=== PATIENT | male | born 1930 | race Caucasian/White ===

== ENCOUNTER 2016-10-05 09:35 | Observation (INO) | payer MEDICARE, MEDICAID ==
[2016-10-05] MEDS ORDERED: ENALAPRILAT DIHYDRATE 1.25 MG/ML 1ML VIAL IV ONE (10:11)
[2016-10-05] MEDS ORDERED: FUROSEMIDE 40 MG/4 ML VIAL ONE (10:11)
[2016-10-05 10:24] LABS: ABSOLUTE NEUTROPHIL COUNT 5.4 K/mm3 (1.8-7.7); BASO # 0.1 K/mm3 (0.0-0.2); BASO % 0.6 % (0.2-1.0); EOS # 0.1 (0.0-0.5); EOS % 1.7 % (0.9-2.9); HEMATOCRIT 38.2 % (32.0-52.0); HEMOGLOBIN 11.8 gm/l (14.0-18.0); IMM NEUT # 0.1 K/mm3 (0-0.2); IMM NEUT% 0.6 % (0-1); LYMPH # 1.9 (1.0-4.8); MEAN CELL VOLUME 96.2 fl (80.0-94.0); MEAN CORPUSCULAR HEMOGLOBIN 29.7 pg (27.0-31.0); MEAN CORPUSCULAR HGB CONC 30.9 g/dl (33.0-37.0); MEAN PLATELET VOLUME 10.6 fl (7.4-10.4); MONO # 0.8 (0.0-0.8); MONO % 9.1 % (4-12); PLATELET COUNT 206 K/mm3 (130-400); RED CELL DISTRIBUTION WIDTH 14.4 % (11.5-14.5)
[2016-10-05 10:29] LABS: INR 2.3; PROTHROMBIN TIME 25.2 SECONDS (9.3-11.4)
[2016-10-05 10:40] LABS: ALB/GLOB RATIO 1.2 (>1.0); ALBUMIN 3.9 gm/dL (3.5-5.7); CALCIUM 9.4 mg/dL (8.6-10.3); MAGNESIUM 2.2 mg/dL (1.9-2.7)
--- NOTE | 2016-10-05 10:59 | RAD ---
Exam: Portable chest COMPARISON: 06/23/2016 and 01/26/2012 INDICATION: Dyspnea. FINDINGS: A semierect AP portable view of the chest again demonstrates postsurgical changes of median sternotomy and valve replacement. Dual-lead pacer/AICD is unchanged in position. Cardiomegaly is similar, as is the borderline prominent central pulmonary vasculature. There is no lavinia pulmonary edema, focal airspace disease or pleural effusion. IMPRESSION: No acute pulmonary process.
[2016-10-05 13:33] VITALS: BMI 39.0
[2016-10-05] MEDS ORDERED: BISACODYL 10 MG SUP PR PRN (15:39)
[2016-10-05] MEDS ORDERED: ACETAMINOPHEN 325 MG TABLET PO PRN (15:39)
[2016-10-05] MEDS ORDERED: MAGNESIUM HYDROXIDE 30 ML UDCUP PO PRN (15:39)
[2016-10-05] MEDS ORDERED: SODIUM CHLORIDE 0.9% 100 ML IV PRN (15:39)
[2016-10-05] MEDS ORDERED: BLISTEX LIPSTICK 1 EACH TP PRN (15:39)
[2016-10-05] MEDS ORDERED: MENTHOL/CETYLPYRD 1 EACH LOZENGE PO PRN (15:39)
[2016-10-05] MEDS ORDERED: BISACODYL 5 MG TABLET.EC PO PRN (15:39)
[2016-10-05] MEDS ORDERED: TRAZODONE HCL 50 MG TABLET PO PRN (15:48)
[2016-10-05] MEDS ORDERED: ALPRAZOLAM 0.5 MG TABLET PO PRN (15:48)
[2016-10-05] MEDS ORDERED: ALBUTEROL SULFATE MDI 60 PUFFS/INHALER IH PRN (15:48)
[2016-10-05] MEDS ORDERED: WARFARIN PER PHARMACY 1 EACH DOSE PO SCH (16:00)
[2016-10-05] MEDS ORDERED: ALPRAZOLAM 1 MG TABLET PO PRN (16:04)
[2016-10-05] MEDS ORDERED: WARFARIN SODIUM 2.5 MG TABLET PO ONE ×2 (16:33→21:00)
[2016-10-05] MEDS ORDERED: FUROSEMIDE 40 MG TABLET PO ONE (17:35)
[2016-10-05] MEDS: NYSTATIN TP SCH ×2 (17:43→20:42)
[2016-10-05] MEDS: TRIAMCIN TP SCH ×2 (17:43→20:42)
[2016-10-05] MEDS: FLUTICASONE/SALMETEROL 250/50 14 PUFFS/DISK IH SCH (20:40)
[2016-10-05] MEDS: FLUTICASONE PROPIONATE 50 MCG/SPRAY 120 SPRAYS/16 G INH NS SCH (20:40)
[2016-10-05] MEDS: DOCUSATE SODIUM 100 MG CAPSULE PO SCH (20:41)
[2016-10-05] MEDS: ROPINIROLE 1 MG TABLET PO SCH (20:41)
[2016-10-05] MEDS ORDERED: WARFARIN SODIUM 2.5 MG TABLET PO SCH (21:00)
--- NOTE | 2016-10-06 00:02 | HP ---
BECKYEVAN [id number] DATE OF : 1930 CHIEF COMPLAINT: Shortness of breath. HISTORY OF PRESENT ILLNESS: The patient has a history of COPD with home oxygen dependence, along with atrial fibrillation, CHF and coronary artery disease, who has developed worsening shortness of breath over the past three to four days. He says he is taking his medications as usual. He is not using any increased salt. He has not developed any cold or flu symptoms. With his increased shortness of breath he has also had some increase in his rate of breathing. He denies any fevers, chest pain or cough. REVIEW OF SYSTEMS: General - no fevers or chills. ENT - no congestion or throat pain. Cardiovascular - no chest pain or pressure. He may have had a pound or two of weight gain, but denies any increase in edema. Respiratory - shortness of breath. No coughing. Increased respiratory rate. Abdomen - no abdominal pain, nausea, vomiting or diarrhea. - no difficulties with urination. Musculoskeletal - no muscle aches or pain. Neurologic - no lightheadedness, dizziness, numbness or tingling. Skin -psoriasis, multiple erythematous plaques bilateral extremities in the flexures. PAST MEDICAL HISTORY: Includes: 1. Coronary artery disease. 2. Mitral regurgitation. 3. Pulmonary hypertension. 4. Paroxysmal atrial fibrillation. 5. Sleep apnea. 6. Restless legs. 7. Depression. 8. He has COPD and he is on two liters of home O2 use. 9. Morbidly obese. 10. Hyperlipidemia. 11. Mitral valve disease. 12. Left bundle branch block. 13. Dilated ischemic cardiomyopathy. 14. Type-2 diabetes. 15. Hypertension. 16. Osteoarthritis. PAST SURGICAL HISTORY: Includes: 1. Cataracts. 2. Cholecystectomy. 3. Knee surgery. 4. Penile implant. 5. Mitral valve replacement. 6. Pacemaker. 7. He has had cardiac catheterizations and atrial fibrillation ablation in the past. ALLERGIES: Include: 1. Lisinopril. 2. Morphine. 3. Tetanus. MEDICATIONS: 1. Warfarin. 2. Trazodone. 3. Fluticasone nasal spray. 4. Atorvastatin. 5. Amlodipine. 6. Xanax. 7. Albuterol. 8. Carvedilol. 9. Aspirin. 10. Fluoxetine. 11. Furosemide. 12. Advair. 13. Glimepride. 14. Niacin. 15. Nasonex. 16. Mag-Oxide. 17. Fish oil. 18. Nystatin. 19. Triamcinolone cream. 20. Requip. 21. Spironolactone. FAMILY HISTORY: Mother had a heart attack and sudden . SOCIAL HISTORY: He used to smoke, but he quit over 25 years ago. He is retired. He has had asbestos exposure. 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 He is and they have several children. PHYSICAL EXAMINATION: VITAL SIGNS: Temperature 98.8. Heart rate of 52. Blood pressure 102/62. Saturating 93% on room air. He does have two liters nasal cannula for his home oxygen use. GENERAL: He is alert and oriented, in no acute distress. He is cooperative and comfortable. HEENT: Normocephalic, atraumatic. No tenderness to palpation. His mucous membranes are moist. Pupils are equal, round and reactive. His extraocular muscles are intact. There is no scleral icterus or conjunctival injection. GENERAL: He is morbidly obese. CARDIOVASCULAR: Positive S1, S2. It is regular. Palpable pulses bilaterally radially. RESPIRATORY: Decreased in the bases. Otherwise clear to auscultation. No rhonchi, wheezing or crackles. ABDOMEN: Soft and nontender. No distention. No rebound and no guarding. MUSCULOSKELETAL: He is moving extremities without difficulty. NEUROLOGIC: He is alert and oriented. SKIN: He has psoriatic plaques bilateral knees and scattered erythematous plaques on other extremities. LABORATORY STUDIES: Sodium 136, potassium 4.0, chloride 100, carbon dioxide 30, BUN of 15, creatinine 1.0, glucose 119, calcium 9.4, magnesium 2.2 and alkaline phosphatase 143. Troponin 0.03. BNP of 99. White blood count 8.2, hemoglobin of 11.8, hematocrit of 38.2 and platelet count of 206. PT of 25.2. INR is 2.3, with a VBG lactate of 1.6. Influenza A was negative. IMAGIN. A chest x-ray with no acute cardiopulmonary process. 2. In the emergency department the emergency physician performed a bedside ultrasound, and he did see some fluid overload in the costophrenic angles, not seen on chest x-ray however. An EKG was obtained, and it showed a paced rate of 77 beats per minute, with a QRS duration of 217 milliseconds and a QTC of 536 milliseconds. ASSESSMENT/PLAN: This is an 85-year-old female with shortness of breath, history of COPD, ischemic cardiomyopathy and coronary artery disease status post stentings and AICD placement who was provided with IV Lasix and enalapril in the emergency department, with improvements of his symptoms as he started to diurese. The patient is being admitted to the hospital overnight for observation and ongoing care. 1. Acute CHF, with improvement with diuresis. Will continue diuresis and monitor. He is on his home O2 use. 2. Dilated ischemic cardiomyopathy, contributing to fluid overload. Will continue home medications and monitor. 3. COPD. The patient is at his baseline oxygen requirement. Will continue his inhaler treatment and monitor. 4. Depression. Continue his home medications. 5. Diabetes Type-2. Will monitor his diet and continue his home medications. 6. Hypertension, stable. 7. Morbidly obese, contributing to complicating medical care and his functional reserve for tolerating fluid overload or decrease in oxygen. 8. Restless legs. Continue his home medications. 9. The patient is a DNR at this time. cc: Dr. Petrona Boston
[2016-10-06] MEDS ORDERED: NITROGLYCERIN 0.4 MG/TAB.SUBL BOT SL PRN (01:06)
[2016-10-06 06:51] LABS: ABSOLUTE NEUTROPHIL COUNT 5.2 K/mm3 (1.8-7.7); BASO % 0.4 % (0.2-1.0); EOS # 0.1 (0.0-0.5); EOS % 1.4 % (0.9-2.9); HEMATOCRIT 36.1 % (32.0-52.0); HEMOGLOBIN 11.2 gm/l (14.0-18.0); IMM NEUT% 0.4 % (0-1); LYMPH # 1.6 (1.0-4.8); LYMPH % 20.4 % (15-45); MEAN CELL VOLUME 94.8 fl (80.0-94.0); MEAN CORPUSCULAR HEMOGLOBIN 29.4 pg (27.0-31.0); MEAN PLATELET VOLUME 10.6 fl (7.4-10.4); MONO # 0.7 (0.0-0.8); MONO % 8.7 % (4-12); NEUT % 68.7 % (43-75); PLATELET COUNT 215 K/mm3 (130-400); RED CELL DISTRIBUTION WIDTH 14.6 % (11.5-14.5)
[2016-10-06 07:05] LABS: INR 2.02; PROTHROMBIN TIME 22.1 SECONDS (9.3-11.4)
[2016-10-06 07:13] LABS: CALCIUM 9.3 mg/dL (8.6-10.3)
[2016-10-06] MEDS: TRIAMCIN TP SCH (08:34)
[2016-10-06] MEDS: NYSTATIN TP SCH (08:34)
[2016-10-06] MEDS: FLUTICASONE PROPIONATE 50 MCG/SPRAY 120 SPRAYS/16 G INH NS SCH (08:35)
[2016-10-06] MEDS: FLUTICASONE/SALMETEROL 250/50 14 PUFFS/DISK IH SCH (08:38)
[2016-10-06] MEDS: ROPINIROLE 1 MG TABLET PO SCH (08:39)
[2016-10-06] MEDS: DOCUSATE SODIUM 100 MG CAPSULE PO SCH (08:39)
[2016-10-06] MEDS ORDERED: AMLODIPINE BESYLATE 5 MG TABLET PO SCH (09:00)
[2016-10-06] MEDS ORDERED: FUROSEMIDE 40 MG TABLET PO SCH (09:00)
[2016-10-06] MEDS ORDERED: FLUOXETINE HCL 20 MG CAPSULE PO SCH (09:00)
[2016-10-06] MEDS ORDERED: CARVEDILOL 6.25 MG TABLET PO SCH (09:00)
[2016-10-06] MEDS ORDERED: ATORVASTATIN CALCIUM 40 MG TABLET PO SCH (09:00)
[2016-10-06] MEDS ORDERED: Magnesium Oxide 400 MG TABLET PO SCH (09:00)
[2016-10-06] MEDS ORDERED: ASPIRIN (ENTERIC COATED) 81 MG TABLET.EC PO SCH (09:00)
[2016-10-06] MEDS ORDERED: SPIRONOLACTONE 25 MG TABLET PO SCH (09:00)
[2016-10-06] MEDS ORDERED: GLIMEPIRIDE 1 MG TABLET PO SCH (09:00)
--- NOTE | 2016-10-06 12:01 | PDOC5 ---
ADMIT DATE: 10/05/16 DISCHARGE DATE: 10/06/16 ADMISSION DIAGNOSES: CHF, acute. Discharge Diagnoses: CHF, chronic, diastolic dysfunction LBBB AICD Dilated ischemic cardiomyopathy COPD CAD Depression DMII HLD HTN AUSTYN Morbid obesity Mitral valve replacement RLS AFib PROCEDURES PERFORMED THIS HOSPITALIZATION: None CONSULTATIONS: None HOSPITAL COURSE: This is a 85 year old male who presented to the ED for increasing shortness of breath over 3 days. He had a slightly elevated BNP of 99 and was provided with an additional dose of lasix. With the lasix he did diurese well and had improvement with his symptoms. In the morning, his respiratory status was at his baseline with 2 liters of O2. His is comfortable taking the patient home. - Exam Vital Signs Temperature 97.8 F 10/06/16 07:00 Pulse Rate 73 10/06/16 07:00 Respiratory Rate 20 10/06/16 07:00 Blood Pressure 124/57 10/06/16 07:00 O2 Saturation by Pulse Oximetry 93 10/06/16 08:57 Oxygen Delivery Method Room Air Oxygen Flow Rate 0 General: Alert, Oriented x3, Cooperative, Other (mildly obese), No Acute Distress HEENT: Atraumatic, PERRLA, EOMI, Mucous membr. moist/pink Lungs: Clear to Auscultation Bilaterally, Normal Air Movement, Other (no crackle or wheeze) Cardiovascular: Regular Rate and Rhythm, Normal S1, Normal S2, Murmur (click) Abdomen: Soft, Mild Distention, No Rigid, No Tenderness, No Rebounding Extremities: Edema, No Cyanosis, No Tenderness Neurological: Normal Speech Psych/Mental Status: Normal Mood - Results Laboratory 10/06/16 06:30 10/06/16 06:30 10/06/16 06:30 RBC 3.81 L MCV 94.8 H MCHC 31.0 L RDW 14.6 H PT 22.1 H Laboratory Tests 10/05/16 10/05/16 10/06/16 10:00 10:03 01:35 VBG Lactate 1.6 Troponin I 0.03 0.03 B-Natriuretic Peptide 99 Influenza A (Rapid) Negative Influenza B (Rapid) Negative Imaging Results: CXR: No acute cardiopulmonary process - Problems:Assessment/Plan (1) Acute exacerbation of CHF (congestive heart failure) Qualifiers: Congestive heart failure type: diastolic Qualifier Code: (I50.33) Acute on chronic diastolic (congestive) heart failure Status: Acute Assessment/Plan: acute on chronic. Patient with enough fluid overload to cause symptoms. Denies any missing medication doses or added salt to his diet. Symptoms improved with additional diuresis (2) LBBB (left bundle branch block) Status: ChronicAssessment/Plan: with AICD (3) Ischemic dilated cardiomyopathy Status: ChronicAssessment/Plan: stable (4) COPD (chronic obstructive pulmonary disease) Qualifiers: COPD type: chronic bronchitis Status: ChronicAssessment/Plan: chronic O2 use of 2 liters, stable With chronic respiratory failure (5) CAD (coronary artery disease) Qualifiers: Coronary Disease-Associated Artery/Lesion type: [place] artery [place] vs. transplanted heart: [place] heart Associated angina: without angina Qualifier Code: (I25.10) Atherosclerotic heart disease of [place] coronary artery without angina pectoris Status: ChronicAssessment/Plan: asymptomatic, troponin without elevation (6) Depression Qualifiers: Depression Type: dysthymia Qualifier Code: (F34.1) Dysthymic disorder Status: ChronicAssessment/Plan: stable (7) DM II (diabetes mellitus, type II), controlled Qualifiers: Diabetes mellitus complication status: without complication Diabetes mellitus terminal press operator insulin use: without snf use Qualifier Code: (E11.9 ) Type 2 diabetes mellitus without complications Status: ChronicAssessment/ Plan: treated with sliding scale. PO meds and diet control (8) HLD (hyperlipidemia) Qualifiers: Hyperlipidemia type: mixed hyperlipidemia Qualifier Code: (E78.2) Mixed hyperlipidemia Status: ChronicAssessment/Plan: stable (9) HTN (hypertension) Qualifiers: Hypertension type: essential hypertension Qualifier Code: (I10) Essential (primary) hypertension Status: ChronicAssessment/Plan: stable (10) AUSTYN (obstructive sleep apnea) Status: ChronicAssessment/Plan: stable, home O2 use (11) Obesity (BMI 35.0-39.9 without comorbidity) Status: ChronicAssessment/Plan: complciates medical care, contributes to difficulty with breathing due to [place] appearance (12) RLS (restless legs syndrome) Status: ChronicAssessment/Plan: stable - Discharge Plan Instruction Forms: Warfarin Therapy Education Condition: Good Disposition: Home
[2016-10-06 12:25] VITALS: BP 124/66
--- NOTE | 2016-10-06 13:23 | HP ---
Torey Torres [facility] : 1930 CHIEF COMPLAINT: Shortness of breath. HISTORY OF PRESENT ILLNESS: The patient has a history of chronic obstructive pulmonary disease with home oxygen dependence along with atrial fibrillation and congestive heart failure, coronary artery disease who has developed worsening shortness of breath over the past 3 to 4 days. He says he is taking his medications as needed. He is not using any increased salt. He has not developed any cold or flu symptoms. With his increased shortness of breath he has also had some increase in his rate of breathing. He denies any fevers, chest pain, or cough. REVIEW OF SYSTEMS: General: No fevers or chills. ENT: No congestion or throat pain. Cardiovascular: No chest pain or pressure. He may have had a pound or two or weight gain, but denies any increase in edema. Respiratory: Shortness of breath. No coughing. Increased respiratory rate. Abdomen: No abdominal pain, nausea, vomiting, diarrhea. : No difficulties with urination. Musculoskeletal: No muscles aches or pains. Neurologic: No lightheadedness, dizziness, numbness, tingling. Skin: Psoriasis, multiple erythematous plaques bilateral extremities on the flexors. PAST MEDICAL HISTORY: Includes coronary artery disease, mitral regurgitation, pulmonary hypertension, paroxysmal atrial fibrillation, sleep apnea, restless legs, depression. He has chronic obstructive pulmonary disease and he is on 2 liters home O2, obesity, hyperlipidemia, mitral valve disease, left bundle branch block, dilated ischemic cardiomyopathy, depression, type 2 diabetes, hyperlipidemia, hypertension, morbidly obese, osteoarthritis. PAST SURGICAL HISTORY: Includes cataracts, cholecystectomy, knee surgery, penile implant, mitral valve replacement, pacemaker. He has had cardiac catheterization and atrial fibrillation ablation in the past. ALLERGIES: INCLUDE LISINOPRIL, MORPHINE, AND TETANUS. MEDICATIONS: 1. Warfarin. 2. Trazodone. 3. Fluticasone nasal spray. 4. Atorvastatin. 5. Amlodipine. 6. Xanax. 7. Albuterol. 8. Carvedilol 9. Aspirin. 10. Fluoxetine. 11. Furosemide. 12. Advair. 13. Glimepiride. 14. Niaspan. 15. Nasonex. 16. Shaye oxide. 17. Fish oil. 18. Nystatin. 19. Triamcinolone cream. 20. Requip. 21. Spironolactone. FAMILY HISTORY: Mother had a heart attack and sudden . SOCIAL HISTORY: He used to smoke, but he quit over 25 years ago. She is retired. He has had asbestos exposure. He worked in the ship yards. He is and they have several children. PHYSICAL EXAMINATION: VITAL SIGNS: Temperature 98.8, heart rate of 52, blood pressure 102/62, saturating 93% on room air. he does have 2 liters nasal cannula for his home oxygen use. GENERAL: He is alert and oriented in no acute distress. He is cooperative and comfortable. He is morbidly obese. HEENT: Normocephalic, atraumatic. No tenderness to palpation. Mucous membranes are moist. Pupils are equal, round, and reactive. Extraocular muscles intact. No scleral icterus, conjunctival injection. NECK: Supple. Trachea midline. CARDIOVASCULAR: Regular with positive S1, S2. Palpable pulses bilaterally radially. RESPIRATORY: Decreased in the bases otherwise, clear to auscultation. No rhonchi, wheezing, or crackles. ABDOMEN: Soft, nontender, nondistended. No rebound, no guarding. MUSCULOSKELETAL: He is moving extremities without difficulty. NEUROLOGIC: He is alert and oriented. SKIN: He has got psoriatic plaques bilateral knees and scattered erythematous plaques on other extremities. LABORATORY STUDIES: Sodium 136, potassium 4.0, chloride 100, carbon dioxide 30, BUN 15, creatinine 1.0, glucose 119, calcium 9.4, magnesium 2.2, alkaline phosphatase 143. Troponin 0.03. BNP of 99. White blood count 8.2, hemoglobin 11.8, hematocrit of 38.2, platelet count of 206. PT of 25.2, INR 2.3 with a VBG lactate of 1.6. Influenza A was negative. DIAGNOSTICS: A chest x-ray there was no acute cardiopulmonary process. In the emergency department the emergency physician performed a bedside ultrasound and he did see some fluid overload in the costophrenic angle, not seen on chest x-ray, however. EKG was obtained and it showed a paced rhythm of 77 beats per minute with a QRS duration of 217 milliseconds and a QTC of 536 milliseconds. ASSESSMENT AND PLAN: This is an 85-year-old male with shortness of breath, history of chronic obstructive pulmonary disease, ischemic cardiomyopathy, and coronary artery disease status post stenting and automatic implantable cardiac defibrillator placement. He was provided with IV Lasix and enalapril in the emergency department with improvement of his symptoms as he started to diurese. Patient is being admitted to the hospital overnight for observation and ongoing care. 1. Acute on chronic congestive heart failure with improvement with diuresis. Will continue diuresis and monitor. He is on his home O2 use. 2. Dilated ischemic cardiomyopathy contributing to fluid overload. We will continue home medications and monitor. 3. Chronic obstructive pulmonary disease. Patient is on his baseline oxygen requirement. We will continue his inhaler treatment and monitor. 4. Depression. Continue his home medications. 5. Diabetes type 2. We will monitor his diet and continue his home medications. 6. Hypertension, stable. 7. Morbidly obese contributing to complicating medical care and functional reverse for tolerating fluid overload or decrease in oxygen. 8. Restless legs. continue his home medications. Patient is do not resuscitate at this time. JOB: [id number] CC: Dr. Petrona Boston
[2016-10-06] MEDS ORDERED: WARFARIN SODIUM 5 MG TABLET PO SCH (21:00)
== END 2016-10-06 12:42 | disposition home or self-care (01) ==
LOC: ED 09:35 → MS 12:34
PROVIDERS: ADMIT Family Medicine; ATTEND Family Medicine
DX: I11.0 Hypertensive heart disease with heart failure (principal); I50.9 Heart failure, unspecified; J44.9 Chronic obstructive pulmonary disease, unspecified; Z99.81 Dependence on supplemental oxygen; I48.91 Unspecified atrial fibrillation; I25.10 Atherosclerotic heart disease of native coronary artery without angina pectoris; E11.9 Type 2 diabetes mellitus without complications; M19.90 Unspecified osteoarthritis, unspecified site; I44.7 Left bundle-branch block, unspecified; E66.01 Morbid (severe) obesity due to excess calories; Z95.0 Presence of cardiac pacemaker; Z87.891 Personal history of nicotine dependence; I25.5 Ischemic cardiomyopathy; F32.9 Major depressive disorder, single episode, unspecified; Z66 Do not resuscitate; Z51.81 Encounter for therapeutic drug level monitoring; Z79.01 Long term (current) use of anticoagulants; Z95.2 Presence of prosthetic heart valve
CPT/HCPCS: 83605; 83880; 85025 ×2; 80048; 80053; 83735; 85610 ×3; 84484 ×2; 36415 ×2; 71010; 87804; 97165; 96375; 99284; 96374; 36416; 93005; 99285; A9270 ×15; J1940; G0463; G0378 ×2

== ENCOUNTER 2016-11-08 17:45 | Emergency (ER) | payer MEDICARE, MEDICAID ==
[2016-11-08] MEDS ORDERED: FUROSEMIDE 40 MG/4 ML VIAL ONE (18:18)
[2016-11-08 18:34] LABS: ABSOLUTE NEUTROPHIL COUNT 5.4 K/mm3 (1.8-7.7); BASO # 0.1 K/mm3 (0.0-0.2); BASO % 0.6 % (0.2-1.0); EOS # 0.1 (0.0-0.5); EOS % 1.3 % (0.9-2.9); HEMATOCRIT 38.3 % (32.0-52.0); IMM NEUT% 0.1 % (0-1); LYMPH # 1.7 (1.0-4.8); LYMPH % 21.8 % (15-45); MEAN CELL VOLUME 92.5 fl (80.0-94.0); MEAN CORPUSCULAR HGB CONC 31.3 g/dl (33.0-37.0); MEAN PLATELET VOLUME 10.6 fl (7.4-10.4); MONO # 0.6 (0.0-0.8); MONO % 7.2 % (4-12); PLATELET COUNT 176 K/mm3 (130-400); RED CELL DISTRIBUTION WIDTH 15.2 % (11.5-14.5)
--- NOTE | 2016-11-08 18:53 | RAD ---
Name: EVAN MAY BECKY Exam: Single view chest Comparison: 10/05/2016 Clinical history: Shortness of breath Findings: Single view chest may. Heart is enlarged. There is no mediastinal widening or hilar enlargement. There is been prior valve replacement surgery. Left approach AICD is in stable position. There is no failure, infiltrate, pleural effusion or pneumothorax. Impression: 1. Cardiomegaly without overt failure 2. Prior chest surgery
[2016-11-08 18:59] LABS: ALB/GLOB RATIO 1.2 (>1.0); ALBUMIN 3.7 gm/dL (3.5-5.7); CALCIUM 9.5 mg/dL (8.6-10.3); MAGNESIUM 2.4 mg/dL (1.9-2.7)
[2016-11-08 19:15] LABS: URINE BILIRUBIN NEGATIVE (NEGATIVE); URINE BLOOD NEGATIVE (NEGATIVE); URINE GLUCOSE (UA) NEGATIVE (NEGATIVE); URINE LEUKOCYTE ESTERASE NEGATIVE (NEGATIVE); URINE NITRITE NEGATIVE (NEGATIVE); URINE PROTEIN NEGATIVE (NEGATIVE); URINE UROBILINOGEN NORMAL (0-1 mg/dl)
[2016-11-08 19:16] LABS: URINE APPEARANCE CLEAR; URINE COLOR YELLOW
[2016-11-08] MEDS ORDERED: ACETAMINOPHEN 500 MG TABLET ONE (19:16)
[2016-11-08 19:27] LABS: INR 2.21; PROTHROMBIN TIME 24.1 SECONDS (9.3-11.4)
== END 2016-11-08 20:13 | disposition home or self-care (01) ==
LOC: ED 17:45
DX: R06.02 Shortness of breath (principal); I48.91 Unspecified atrial fibrillation; I11.0 Hypertensive heart disease with heart failure; I50.9 Heart failure, unspecified; I25.2 Old myocardial infarction; Z95.0 Presence of cardiac pacemaker; Z79.01 Long term (current) use of anticoagulants